=== PATIENT | male | born 1960 | race Caucasian/White ===

== ENCOUNTER 2017-12-10 01:20 | Inpatient (IN) | payer BC ==
[2017-12-10] MEDS: ONDANSETRON 4 MG INJ IV ×2 (01:58)
[2017-12-10] MEDS: morphine 4 MG/ML VIAL IV ×2 (01:59→05:35)
[2017-12-10] MEDS: SOD CHLORIDE 0.9% 1,000 ML IV ×6 (01:59→21:05)
[2017-12-10] MEDS: METOCLOPRAMIDE 10 MG INJ IV (01:59)
[2017-12-10 02:31] LABS: ADD MAN DIFF? NO
[2017-12-10 02:35] LABS: WHITE BLOOD COUNT 11.6 10^3/ul (4.8-10.8)
[2017-12-10 02:35] LABS: BASOPHILS % 0.3 % (0.0-2.0); EOSINOPHILS # 0.1 10^3/ul (0.0-0.5); EOSINOPHILS % 0.9 % (0.0-7.0); HEMATOCRIT 46.3 % (42.0-52.0); HEMOGLOBIN 15.9 g/dl (14.0-18.0); LYMPHOCYTES # 1.9 10^3/ul (0.8-2.9); LYMPHOCYTES % 16.6 % (15.0-51.0); MEAN CORPUSCULAR HEMOGLOBIN 30.5 pg (29.0-33.0); MEAN CORPUSCULAR HGB CONC 34.3 g/dl (32.0-37.0); MEAN CORPUSCULAR VOLUME 88.9 fl (82.0-101.0); MEAN PLATELET VOLUME 11.8 fl (7.4-10.4); MONOCYTE # 0.5 10^3/ul (0.3-0.9); MONOCYTES % 4.6 % (0.0-11.0); NEUTROPHILS % 77.2 % (39.0-77.0); PLATELET COUNT 237 10^3/UL (140-415); RED BLOOD COUNT 5.21 10^6/ul (4.70-6.10); RED CELL DISTRIBUTION WIDTH 13.2 % (11.5-14.5)
[2017-12-10 02:55] LABS: INR 0.97
[2017-12-10 02:56] LABS: PARTIAL THROMBOPLASTIN TIME 26.4 Sec (25.0-35.0)
[2017-12-10 03:10] LABS: ALANINE AMINOTRANSFERASE 24 IU/L (13-69); ALBUMIN/GLOBULIN RATIO 1.28; ALKALINE PHOSPHATASE 80 IU/L (42-121); ANION GAP 22 (8-16); ASPARTATE AMINO TRANSFERASE 25 IU/L (15-46); BILIRUBIN,INDIRECT 0.4 mg/dl (0-1.1); BILIRUBIN,TOTAL 0.4 mg/dl (0.2-1.3); BLOOD UREA NITROGEN 15 mg/dl (7-20); CALCIUM 10.2 mg/dl (8.4-10.2); CARBON DIOXIDE 23 mmol/L (21-31); CHLORIDE 103 mmol/L (97-110); CREATININE 0.76 mg/dl (0.61-1.24); GLUCOSE 139 mg/dl (70-220); LIPASE 66 U/L (23-300); SODIUM 144 mmol/L (135-144); TOTAL PROTEIN 8.9 g/dl (6.1-8.1)
[2017-12-10 03:58] LABS: TROPONIN-I 0.023 ng/ml (0.00-0.12)
[2017-12-10] MEDS: LORAZEPAM 2 MG INJ IV (05:35)
[2017-12-10] MEDS ORDERED: ONDANSETRON 4 MG INJ IV ×3 (06:30→10:30)
[2017-12-10] MEDS ORDERED: NACL 0.9% 3 ML SYG IV (06:30)
[2017-12-10] MEDS ORDERED: ETOMIDATE 20 MG INJ (07:00)
[2017-12-10 07:15] LABS: PROTIME 13.3 Sec (11.9-14.9)
[2017-12-10 07:16] LABS: PARTIAL THROMBOPLASTIN TIME 26.3 Sec (25.0-35.0)
[2017-12-10 07:17] LABS: LACTIC ACID 0.9 mmol/L (0.5-2.0)
[2017-12-10 08:07] LABS: TROPONIN-I 0.024 ng/ml (0.00-0.12)
[2017-12-10] MEDS ORDERED: CITRIC ACID/NA CITRATE 30 ML CUP (09:24)
[2017-12-10] MEDS ORDERED: MIDAZOLAM 1 MG/ML 2 ML INJ (09:29)
[2017-12-10] MEDS ORDERED: FENTAnyl 50 MCG/ML VIAL (09:35)
[2017-12-10] MEDS ORDERED: LIDOCAINE 2% (SDV) 5 ML INJ (09:36)
[2017-12-10] MEDS ORDERED: ROCURONIUM 50 MG INJ (09:36)
[2017-12-10] MEDS ORDERED: SUCCINYLCHOLINE CHLORIDE 100 MG/5 ML SYG IV (09:36)
[2017-12-10] MEDS ORDERED: PROPOFOL 20 ML (09:36)
[2017-12-10] MEDS ORDERED: ESMOLOL 10 ML (09:40)
[2017-12-10] MEDS ORDERED: DEXAMETHASONE 4 MG/ML 1 ML INJ (09:46)
[2017-12-10] MEDS ORDERED: ONDANSETRON 4 MG INJ (09:46)
[2017-12-10] MEDS: BUPIVACAINE 0.25% (MPF) 30 ML INJ (09:49)
[2017-12-10] MEDS ORDERED: SUGAMMADEX SODIUM 200 MG/2 ML VIAL IV (10:04)
[2017-12-10] MEDS ORDERED: KETOROLAC 30 MG INJ (10:06)
[2017-12-10] MEDS ORDERED: MEPERIDINE 25 MG INJ IV (10:30)
[2017-12-10] MEDS ORDERED: LABETALOL HCL 20MG INJ IV (10:30)
[2017-12-10] MEDS ORDERED: HYDROmorphONE (0.2 MG/ML) 10ML SYG IV ×3 (10:30)
[2017-12-10] MEDS ORDERED: morphine 2 MG INJ IV (10:30)
[2017-12-10] MEDS ORDERED: FENTAnyl 50 MCG/ML VIAL IV ×3 (10:30)
[2017-12-10] MEDS ORDERED: DIPHENHYDRAMINE 50 MG INJ IV (10:30)
[2017-12-10] MEDS ORDERED: PROCHLORPERAZINE 10 MG INJ IV (10:30)
[2017-12-10] MEDS ORDERED: OXYCODONE/ACETAMINOPHEN (5/325) TAB PO ×2 (10:30)
[2017-12-10] MEDS ORDERED: hydrALAzine 20 MG INJ IV (10:30)
[2017-12-10] MEDS: HYDROmorphONE 0.5 MG/0.5 ML SYG IV (22:56)
[2017-12-11 06:21] LABS: ADD MAN DIFF? NO
[2017-12-11 06:26] LABS: BASOPHILS % 0.3 % (0.0-2.0); EOSINOPHILS # 0.1 10^3/ul (0.0-0.5); EOSINOPHILS % 1.3 % (0.0-7.0); HEMATOCRIT 35.9 % (42.0-52.0); LYMPHOCYTES # 3.1 10^3/ul (0.8-2.9); LYMPHOCYTES % 28.5 % (15.0-51.0); MEAN CORPUSCULAR HEMOGLOBIN 30.6 pg (29.0-33.0); MEAN CORPUSCULAR HGB CONC 33.4 g/dl (32.0-37.0); MEAN CORPUSCULAR VOLUME 91.6 fl (82.0-101.0); MEAN PLATELET VOLUME 11.9 fl (7.4-10.4); MONOCYTE # 0.7 10^3/ul (0.3-0.9); MONOCYTES % 6.9 % (0.0-11.0); NEUTROPHIL # 6.7 10^3/ul (1.6-7.5); NEUTROPHILS % 62.5 % (39.0-77.0); PLATELET COUNT 170 10^3/UL (140-415); RED BLOOD COUNT 3.92 10^6/ul (4.70-6.10); RED CELL DISTRIBUTION WIDTH 13.5 % (11.5-14.5)
[2017-12-11 06:26] LABS: WHITE BLOOD COUNT 10.7 10^3/ul (4.8-10.8)
[2017-12-11] MEDS: SOD CHLORIDE 0.9% 1,000 ML IV (06:28)
[2017-12-11 06:42] LABS: ALANINE AMINOTRANSFERASE 25 IU/L (13-69); ALBUMIN 3.3 g/dl (3.3-4.9); ALBUMIN/GLOBULIN RATIO 1.26; ALKALINE PHOSPHATASE 49 IU/L (42-121); ANION GAP 15 (8-16); ASPARTATE AMINO TRANSFERASE 21 IU/L (15-46); BILIRUBIN,INDIRECT 0.4 mg/dl (0-1.1); BILIRUBIN,TOTAL 0.4 mg/dl (0.2-1.3); BLOOD UREA NITROGEN 15 mg/dl (7-20); CALCIUM 8.6 mg/dl (8.4-10.2); CARBON DIOXIDE 23 mmol/L (21-31); CHLORIDE 110 mmol/L (97-110); CHOL/HDL RATIO 6.7 RATIO; CHOLESTEROL 216 mg/dl (100-200); CREATININE 0.61 mg/dl (0.61-1.24); GLUCOSE 105 mg/dl (70-220); HDL CHOLESTEROL 32 mg/dl (28-71); LDL CHOLESTEROL,CALCULATED 154 mg/dl; MAGNESIUM 1.8 mg/dl (1.7-2.5); POTASSIUM 3.9 mmol/L (3.5-5.1); SODIUM 144 mmol/L (135-144); TOTAL PROTEIN 5.9 g/dl (6.1-8.1); TRIGLYCERIDES 150 mg/dl (0-149)
[2017-12-11 07:02] LABS: THYROID STIMULATING HORMONE 0.291 MIU/L (0.465-4.680)
[2017-12-11 07:31] LABS: HEMOGLOBIN A1C 5.5 % (0-5.9)
[2017-12-11 09:36] LABS: ADD UMIC NO; UR ASCORBIC ACID NEGATIVE (NEGATIVE); UR BILIRUBIN (Dip) NEGATIVE (NEGATIVE); UR BLOOD (Dip) NEGATIVE (NEGATIVE); UR CLARITY CLEAR (CLEAR); UR COLOR YELLOW (YELLOW); UR GLUCOSE (Dip) NEGATIVE (NEGATIVE); UR KETONES (Dip) 2+ mg/dL (NEGATIVE); UR LEUKOCYTE ESTERASE (Dip) NEGATIVE Leu/ul (NEGATIVE); UR NITRITE (Dip) NEGATIVE (NEGATIVE); UR SPECIFIC GRAVITY (Dip) 1.023 (1.003-1.030); UR TOTAL PROTEIN (Dip) NEGATIVE (NEGATIVE); UR UROBILINOGEN (Dip) NEGATIVE (NEGATIVE)
== END 2017-12-11 14:30 | disposition home or self-care (01) | DRG 355 ==
LOC: E/R 01:20 → MS1 05:36 → MS2 06:04
PROC: 0WUF0JZ Supplement Abdominal Wall with Synthetic Substitute, Open Approach (ICD-10-PCS; principal; 2017-12-10 09:21)
DX: K42.0 Umbilical hernia with obstruction, without gangrene (principal); I10 Essential (primary) hypertension; I25.10 Atherosclerotic heart disease of native coronary artery without angina pectoris; E78.5 Hyperlipidemia, unspecified; F17.210 Nicotine dependence, cigarettes, uncomplicated; I25.2 Old myocardial infarction
CPT/HCPCS: 36415; 71045; 74176; 80053; 80061; 81003; 83036; 83605; 83690; 83735; 84443; 84484; 85025; 85610; 85730; 88302; 93005; 93306; 96374; 96375; 96376; 99285-25